=== PATIENT | male | born 1960 | race Caucasian/White ===

== ENCOUNTER → 2018-01-15 | Outpatient (CLI) | payer BC ==
--- NOTE | 2018-01-15 09:29 | US ---
EXAMINATION TYPE: US carotid duplex BILAT DATE OF EXAM: 01/15/2018 COMPARISON: NONE CLINICAL HISTORY: E11.9. EXAM MEASUREMENTS: RIGHT: Peak Systolic Velocity (PSV) cm/sec ----- Right CCA: 79.6 ----- Right ICA: 93.8 ----- Right ECA: 79.8 ICA/CCA ratio: 1.2 RIGHT: End Diastole cm/sec ----- Right CCA: 22.7 ----- Right ICA: 35.1 ----- Right ECA: 12.8 LEFT: Peak Systolic Velocity (PSV) cm/sec ----- Left CCA: 81.8 ----- Left ICA: 76.1 ----- Left ECA: 63.3 ICA/CCA ratio: 0.9 LEFT: End Diastole cm/sec ----- Left CCA: 24.1 ----- Left ICA: 14.9 ----- Left ECA: 12.7 VERTEBRALS (direction of flow): Right Vertebral: Antegrade Left Vertebral: Antegrade Rhythm: Normal Patient has short, very thick neck. Technically difficult study. No significant velocity elevations, mild atherosclerotic changes. IMPRESSION: 1. No significant flow-limiting stenosis. 2. Atheromatous plaquing present bilaterally. Some turbulent flow is noted on Doppler waveforms. Criteria for Assigning % of Stenosis / Diameter reduction (Estimation based on the indirect measurements of the internal carotid artery velocities (ICA PSV). 1. Normal (no stenosis)=ICA PSV < 125 cm/s: ratio < 2.0: ICA EDV<40 cm/s. 2. Less than 50% stenosis=ICA PSV < 125 cm/s: ratio < 2.0: ICA EDV<40 cm/s. 3. 50 to 69% stenosis=ICA PSV of 125 to 230 cm/s: ration 2.0 ? 4.0: ICA EDV 40-100 cm/s. 4. Greater than 70% stenosis to near occlusion= ICA PSV > 230 cm/s: ratio > 4.0: ICA EDV > 100 cm/s. 5. Near occlusion= ICA PSV velocities may be low or undetectable: variable ratio and ICA EDV. 6. Total occlusion=unable to detect flow.
--- NOTE | 2018-01-15 13:12 | ECHOF ---
Referral Reason:Type 2 diabetes mellitus without complications E11.9 MEASUREMENTS -------- HEIGHT: 167.6 cm WEIGHT: 113.4 kg BP: 145/84 RVIDd: 3.3 cm (< 3.3) IVSd: 1.4 cm (0.6 - 1.1) LVIDd: 4.3 cm (3.9 - 5.3) LVPWd: 1.5 cm (0.6 - 1.1) IVSs: 2.0 cm LVIDs: 2.6 cm LVPWs: 1.8 cm LA Diam: 3.2 cm (2.7 - 3.8) LAESV Index (A-L): 14.08 ml/m Ao Diam: 3.7 cm (2.0 - 3.7) AV Cusp: 2.3 cm (1.5 - 2.6) MV EXCURSION: 13.189 mm (> 18.000) MV EF SLOPE: 45 mm/s (70 - 150) EPSS: 0.5 cm MV E Nathan: 0.85 m/s MV DecT: 243 ms MV A Nathan: 0.96 m/s MV E/A Ratio: 0.89 FINDINGS -------- Sinus rhythm. This was a technically adequate study. The left ventricular size is normal. There is moderate concentric left ventricular hypertrophy. O verall left ventricular systolic function is normal with, an EF between 60 - 65 %. The right ventricle is mildly enlarged. The left atrial size is normal. The right atrium is normal in size. There is mild aortic valve sclerosis. The mitral valve is normal. The tricuspid valve appears structurally normal. There is no pulmonic regurgitation present. The aortic root size is normal. IVC Not well visulized. There is no pericardial effusion. CONCLUSIONS -------- 1. Sinus rhythm. 2. This was a technically adequate study. 3. The left ventricular size is normal. 4. There is moderate concentric left ventricular hypertrophy. 5. Overall left ventricular systolic function is normal with, an EF between 60 - 65 %. 6. The right ventricle is mildly enlarged. 7. The left atrial size is normal. 8. The right atrium is normal in size. 9. There is mild aortic valve sclerosis. 10. The mitral valve is normal. 11. The tricuspid valve appears structurally normal. 12. There is no pulmonic regurgitation present. 13. The aortic root size is normal. 14. IVC Not well visulized. 15. There is no pericardial effusion. BUILDING APPRAISER: Rupal Jewell RDCS
--- NOTE | 2018-01-15 14:18 | EST ---
EXERCISE STRESS DATE OF SERVICE: 01/15/2018 AGE: 58 SEX: Male HT: 66 WT: 250 PROTOCOL: Lanre STAGE: II DURATION OF EXERCISE: 6 minutes HEART RATE REST: 90 BLOOD PRESSURE REST: 145/80 MAXIMUM HEART RATE ACHIEVED: 143 MAXIMUM BLOOD PRESSURE: 258/68 85% MPHR: 136 100% MPHR: 160 METS: 6.3 INDICATIONS: Chest pain. CLINICAL INFORMATION: STRESS DATA: Pretesting physical examination showed a heart rate of 90, pressure is 145/80 mmHg. Baseline EKG showed sinus rhythm. The patient exercised on the treadmill according to Lanre protocol for a total of 6 minutes and achieved 6.3 METs. Max heart rate was 143, which is about 100% of maximum predicted heart rate. Maximum blood pressure was 258/68 mmHg. Clinically, the patient did not have any symptoms and the EKG did not show any significant changes. CONCLUSION: 1. Good exercise tolerance. 2. Normal EKG in response to exercise. MMODL / IJN: [id number] /
== END | disposition home or self-care (01) ==
LOC: RADUSMAIN 08:21
PROVIDERS: ATTEND Family Medicine
DX: I65.23 Occlusion and stenosis of bilateral carotid arteries (principal); I10 Essential (primary) hypertension; I51.7 Cardiomegaly; E11.9 Type 2 diabetes mellitus without complications
CPT/HCPCS: 93017; 93306; 93880

== ENCOUNTER 2018-02-05 07:05 | Day surgery (SDC) | payer BC ==
[2018-02-03 11:26] VITALS: BMI 39.5
[~2018-02-05 07:05] MED LIST: LACTATED RINGERS 1,000 ML IV SCH
[2018-02-05 07:28] VITALS: RESP 16; TEMP 98.1
[2018-02-05 07:34] LABS: Glucose,Whole Blood 206 mg/dL (75-99)
[2018-02-05] MEDS ORDERED: LIDOCAINE 1% 20 ML VIAL (10MG/ML) FOR IV START INTRADERMA ONE (07:37)
[2018-02-05] MEDS ORDERED: PROPOFOL 10 MG/ML 20 ML VIAL IV ONE (08:09)
--- NOTE | 2018-02-05 08:31 | P.PCN ---
Date of Procedure: 02/05/18 Procedure(s) Performed: BRIEF HISTORY: Patient is a 58-year-old pleasant male, scheduled for an elective colonoscopy as a part of screening for colorectal neoplasia. PROCEDURE PERFORMED: Colonoscopy. PREOPERATIVE DIAGNOSIS: Screening for Colon cancer. IV sedation per Anesthesia. PROCEDURE: After informed consent was obtained, the patient, was brought into the endoscopy unit. IV sedation was administered by Anesthesia under continuous monitoring. Digital rectal examination was normal. Initially the Olympus CF- 160 flexible video colonoscope was then inserted in the rectum, gradually advanced into the cecum without any difficulty. Careful examination was performed as the scope was gradually being withdrawn. Ileocecal valve and the appendiceal orifice were visualized and appeared normal. Prep was excellent. Mucosa of the cecum, ascending colon, transverse colon, descending colon, sigmoid colon, and rectum appeared normal. Scattered sigmoid diverticula seen. Retroflexion was performed in the rectum and no lesions were seen. The patient tolerated the procedure well. IMPRESSION: Normal-appearing colon from rectum to cecum with no evidence of colorectal neoplasia. Scattered sigmoid diverticula. RECOMMENDATIONS: Findings of this examination were discussed with the patient as well as his family. He was advised to have a repeat screening colonoscopy in 10 years.
[2018-02-05 08:39] LABS: Glucose,Whole Blood 200 mg/dL (75-99)
[2018-02-05 08:47] VITALS: BP 137/84; PULSE 83
== END 2018-02-05 08:59 | disposition home or self-care (01) ==
LOC: ORWHC2ENDO 07:05
PROVIDERS: ATTEND Internal Medicine Gastroenterology
DX: Z12.11 Encounter for screening for malignant neoplasm of colon (principal); K57.30 Diverticulosis of large intestine without perforation or abscess without bleeding; G47.33 Obstructive sleep apnea (adult) (pediatric); Z99.89 Dependence on other enabling machines and devices; I10 Essential (primary) hypertension; E11.9 Type 2 diabetes mellitus without complications; Z79.4 Long term (current) use of insulin; Z79.899 Other long term (current) drug therapy
CPT/HCPCS: 45378; J2704

== ENCOUNTER → 2023-09-18 | Outpatient (CLI) | payer BC ==
--- NOTE | 2023-09-18 15:31 | CT ---
EXAMINATION TYPE: CT sinus wo con DATE OF EXAM: 09/18/2023 COMPARISON: None HISTORY: sinus congestion x [address] DLP: 440.7 mGycm. Automated Exposure Control for Dose Reduction was Utilized. TECHNIQUE: CT scan of the sinuses is performed without contrast, axial images are obtained, coronal r eformatted images are also reviewed. FINDINGS: There is near-complete opacification of the maxillary, frontal, sphenoid and ethmoid sinuses. There i s inflammatory change involving the nasal turbinates on the right. There is complete obstruction of t he ostiomeatal complex disease bilaterally. There is marked thinning of the osseous wiley of the ethm oid sinuses and nasal turbinates consistent with chronic inflammatory change. Intraorbital contents appear normal. The mastoid air cells and middle ear cavities are well aerated. IMPRESSION: Marked chronic pansinusitis as described above.
== END | disposition home or self-care (01) ==
LOC: RADCTMAIN 12:50
PROVIDERS: ATTEND Otolaryngology
DX: J32.4 Chronic pansinusitis (principal)
CPT/HCPCS: 70486

== ENCOUNTER 2024-06-17 08:04 | Day surgery (SDC) | payer BC ==
[~2024-06-17 08:04] MED LIST changes: -LACTATED RINGERS 1,000 ML IV SCH; +LIDOCAINE 1% (10MG/ML) FOR IV START INTRADERMA PRN
[2024-06-17 08:35] VITALS: TEMP 97.8
[2024-06-17 08:41] LABS: Glucose,Whole Blood 187 mg/dL (70-110)
[2024-06-17] MEDS: LACTATED RINGERS 1,000 ML IV SCH (08:42)
[2024-06-17] MEDS: IV FLUID CONTINUATION 1,000 ML IV ONE (08:43)
[2024-06-17] MEDS ORDERED: LIDOCAINE 1% INJ 10MG/ML (20 ML MDV) ONE (09:48)
[2024-06-17] MEDS ORDERED: PROPOFOL 10 MG/ML 20 ML VIAL IV ONE (09:48)
--- NOTE | 2024-06-17 10:05 | P.PCN ---
Date of Procedure: 06/17/24 Procedure(s) Performed: BRIEF HISTORY: Patient is a 64-year-old, pleasant, white man scheduled for an upper endoscopy as a part of evaluation of GERD/chronic cough for the last 2 years duration. He was on rabeprazole 20 mg daily for 10 years but recently it was increased to 20 mg twice daily and since then his symptoms are gradually improving. Cough has significantly improved. PROCEDURE PERFORMED: Esophagogastroduodenoscopy with biopsy. PREOPERATIVE DIAGNOSIS: Longstanding history of GERD/chronic cough. IV sedation per anesthesia. PROCEDURE: After informed consent was obtained, the patient was brought into the endoscopy unit. IV sedation was administered by Anesthesia under continuous monitoring. Initially the Olympus GIF-140 video endoscope was inserted into the mouth. Esophagus intubated without any difficulty. It was gradually advanced into the stomach and duodenum and carefully examined. The bulb and the second part of the duodenum appeared normal. The scope at this time was withdrawn to the stomach, adequately insufflated with air, and upon careful examination, mucosa of the antrum, had linear areas of erythema consistent with gastritis and biopsies were done from this area. Mucosa of the body, cardia and the fundus appeared normal. The scope was then withdrawn into the esophagus. The GE junction was located at 45 cm from the incisors. The esophagus appeared normal. There were no erosions or ulcerations seen, biopsies were done from the distal esophagus and the patient tolerated the procedure well. IMPRESSION: 1. Normal-appearing esophagus with no evidence of esophagitis or Fletcher's esophagus or hiatal hernia. 2. Mild antral gastritis. RECOMMENDATIONS: The findings of this examination were discussed with the patient as well as his family. He was advised to continue with rabeprazole 20 mg twice daily and follow antireflux measures. Use Pepcid at bedtime as needed..
[2024-06-17 10:34] LABS: Glucose,Whole Blood 141 mg/dL (70-110)
[2024-06-17 10:35] VITALS: BP 127/65; PULSE 71; RESP 17
== END 2024-06-17 10:52 | disposition home or self-care (01) ==
LOC: ORWHC2ENDO 08:04
PROVIDERS: ATTEND Internal Medicine Gastroenterology
DX: K29.50 Unspecified chronic gastritis without bleeding (principal); K21.9 Gastro-esophageal reflux disease without esophagitis; I10 Essential (primary) hypertension; E78.5 Hyperlipidemia, unspecified; J45.909 Unspecified asthma, uncomplicated; G47.33 Obstructive sleep apnea (adult) (pediatric); E11.9 Type 2 diabetes mellitus without complications; Z79.899 Other long term (current) drug therapy
CPT/HCPCS: 88305; 43239; J2003; J2704

== ENCOUNTER → 2024-08-03 | Outpatient (CLI) | payer BC ==
[2024-08-03 18:19] LABS: Basophils # (A) 0.09 X 10*3/uL (0.00-0.10); Basophils % (A) 0.7 %; Eosinophils % (A) 12.9 %; HGB 12.8 g/dL (13.0-17.0); Lymphocytes % (A) 21.8 %; MCH 31.5 pg (27.0-32.0); MCHC 33.7 g/dL (32.0-37.0); MCV 93.6 FL (80.0-97.0); Mean Platelet Volume 10.2 FL (9.5-12.2); Monocytes # (A) 0.79 X 10*3/uL (0.20-1.00); Monocytes % (A) 6.4 %; NRBC Per 100 WBC 0 X 10*3/uL (0.00-0.01); Neutrophils # (A) 7.15 X 10*3/uL (1.80-7.70); Neutrophils % (A) 57.8 %; Platelet Count 289 X 10*3/uL (140-440); RBC 4.06 X 10*6/uL (4.40-5.60); WBC 12.38 X 10*3/uL (4.50-10.00)
[2024-08-04 14:53] LABS: Alt. alternata IgE Class CLASS 0; Alternaria alternata IgE <0.10 kU/L (<0.10); Asperg. fumagatus IgE <0.10 kU/L (<0.10); Asperg. fumagatus IgE Class CLASS 0; Bermuda Grass IgE <0.10 kU/L (<0.10); Birch(Com.Silvr) IgE <0.10 kU/L (<0.10); Birch(Com.Silvr) IgE Class CLASS 0; Cat Epith & Dander IgE <0.10 kU/L (<0.10); Cat Epith & Dander IgE Class CLASS 0; Clad herbarum IgE <0.10 kU/L (<0.10); Clad herbarum IgE Class CLASS 0; Cockroach IgE <0.10 kU/L (<0.10); Cottonwood IgE <0.10 kU/L (<0.10); Dermato. Pteronyssinus Class CLASS 0; Dermato. Pteronyssinus IgE <0.10 kU/L (<0.10); Dermato. farinae IgE <0.10 kU/L (<0.10); Dermato. farinae IgE Class CLASS 0; Dog Dander IgE <0.10 kU/L (<0.10); Elm IgE <0.10 kU/L (<0.10); Maple (Box Elder) IgE <0.10 kU/L (<0.10); Maple (Box Elder) IgE Class CLASS 0; Mountain Cedar IgE <0.10 kU/L (<0.10); Mountain Cedar IgE Class CLASS 0; Mouse Urine IgE Class CLASS 0; Mouse Urine Proteins,IgE <0.10 kU/L (0.10); Nettle IgE <0.10 kU/L (<0.10); Nettle IgE Class CLASS 0; Oak IgE <0.10 kU/L (<0.10); Penicillium chrysogenum IgE <0.10 kU/L (<0.10); Penicillium chrysogenum IgE Cl CLASS 0; Rough Marshelder IgE <0.10 kU/L (<0.10); Rough Marshelder IgE Class CLASS 0; Timothy Grass IgE <0.10 kU/L (<0.10); Timothy Grass IgE Class CLASS 0; White Ash IgE Class CLASS 0
== END | disposition home or self-care (01) ==
LOC: LABWHC1 14:01
PROVIDERS: ATTEND Internal Medicine
DX: J45.909 Unspecified asthma, uncomplicated (principal)
CPT/HCPCS: 36415; 82785; 85025; 86003

== ENCOUNTER 2024-09-14 08:38 | Day surgery (SDC) | payer BC ==
[~2024-09-14 08:38] MED LIST changes: +HYDROmorphone 0.5 MG/0.5 ML SYRINGE IVP PRN; +droPERidol 5 MG/2 ML VIAL IVP ONE
[2024-09-14] MEDS: IV FLUID CONTINUATION 1,000 ML IV ONE (09:20)
[2024-09-14] MEDS: OXYMETAZOLINE 0.05% NASL SPRAY 1 SPRAY BOTTLE EA NOSTRIL PRN (09:27)
[2024-09-14 09:51] LABS: Glucose,Whole Blood 176 mg/dL (70-110)
[2024-09-14] MEDS: LACTATED RINGERS 1,000 ML IV SCH (09:53)
[2024-09-14] MEDS: DEXAMETHASONE SOD PHOSPHATE 4 MG/ML 1 ML VIAL IV ONE (09:58)
[2024-09-14] MEDS: ONDANSETRON 4 MG/2 ML VIAL IVP ONE (09:58)
[2024-09-14] MEDS: FAMOTIDINE 20 MG/2 ML VIAL IV PRN (09:59)
[2024-09-14 10:03] LABS: African American GFR (CKD) >90 (>60 ml/min/1.73 sqM); Anion Gap 11 mmol/L; Blood Urea Nitrogen 18 mg/dL (9-20); Calcium 9.9 mg/dL (8.4-10.2); Carbon Dioxide 28 mmol/L (22-30); Chloride 102 mmol/L (98-107); Glucose 174 mg/dL (74-99); Non-African American GFR(CKD) >90 (>60 ml/min/1.73 sqM); Sodium 141 mmol/L (137-145)
[2024-09-14] MEDS ORDERED: ROCURONIUM 10 MG/ML (5 ML VIAL) IV ONE (10:32)
[2024-09-14] MEDS ORDERED: GLYCOPYRROLATE 0.2 MG/ML 2 ML VIAL ONE (10:32)
[2024-09-14] MEDS ORDERED: LIDOCAINE 1% INJ 10MG/ML (20 ML MDV) ONE (10:32)
[2024-09-14] MEDS ORDERED: NEOSTIGMINE 1 MG/ML 10 ML VIAL ONE (10:32)
[2024-09-14] MEDS ORDERED: SUCCINYLCHOLINE CHLORIDE 200 MG/10 ML VIAL IV ONE (10:32)
[2024-09-14] MEDS ORDERED: PROPOFOL 10 MG/ML 20 ML VIAL IV ONE (10:32)
[2024-09-14] MEDS ORDERED: fentaNYL (PF) 50 MCG/ML 2 ML AMP ONE (10:32)
[2024-09-14] MEDS: LIDOCAINE 1%-EPI 1:100,000 20 ML VIAL SUBMUCOSAL ONE ×3 (10:47→10:51)
[2024-09-14] MEDS: BACITRACIN ZINC 500 UNIT/GM OINT 28.4 GM TUBE TOPICAL ONE ×2 (11:07→11:39)
--- NOTE | 2024-09-14 11:59 | P.OP ---
Date of Procedure: 09/14/24 Preoperative Diagnosis: deviated nasal septum Inferior turbinate hypertrophy Chronic sinusitis Nasal polyposis Postoperative Diagnosis: same Procedure(s) Performed: septoplasty Outfracture and submucous resection of the inferior turbinates Bilateral endoscopic sinus surgery including bilateral maxillary antrostomy with removal of tissue from maxillary sinuses bilateral anterior and posterior ethmoidectomy bow sphenoidotomy with exploration and removal of tissue and bilateral frontal sinusotomy with Exploration and removal of tissue, nasal endoscopy with evaluation of the nasopharynx Anesthesia: YANNAA Surgeon: William Rosen Estimated Blood Loss (ml): 20 Pathology: other (nasal septal bone and cartilage sinus contents) Condition: stable Disposition: PACU Indications for Procedure: is a 64 show white male with chronic nasal airway obstruction congestion and chronic sinusitis with sinonasal polyps. Computed tomography scan showed pansinus disease Operative Findings: nasal septum deviated to the left with inferior turbinate hypertrophy bilate rally.diffuse polyposis in the middle meatus bilaterally but right larger the left there were polyps in the maxillary sinuses bilaterally as well as ethmoid sinuses frontal and sphenoid sinuses. Nasopharynx exam showed no particular abnormalities and therefore no biopsies were performed Description of Procedure: The patient was brought into the operative suite and placed in a supine position. The patient underwent induction of general anesthesia with oral endotracheal intubation without difficulty. The patient was prepped and draped in the usual aseptic fashion with the orbits in the operating field for monitoring to the case and the computed tomography scan was on the computer screen for review throughout the case. 1% lidocaine with 1 :100,000 epinephrine was infused submucosally into both sides of the nasal septum as well as the lateral nasal wall and anterior tips of the middle turbinates. While this was taking vasoconstrictive effect the inferior turbinates were infractured with De Witt elevator and partial submucous resection of the inferior turbinates was performed with a portion of the submucosal soft tissue and the inferior turbinate bone removed with Coblation device. The inferior turbinates were then outfractured with the De Witt elevator. A left hemitransfixion incision was then made with the mucoperichondrial and mucoperiosteal flap on the left elevated. The bony cartilaginous junction was disarticulated and the mucoperiosteal flap on the right was elevated. Bony nasal septal deformities were removed with Von forceps and an inferior cartilaginous strip was removed leaving a full 1.5 cm caudal strut. Checking intranasally this corrected the nasoseptal deformities and the hemitransfixion incision was closed with a running 4-0 chromic suture. Full 0 endoscopic examination is performed bilaterally. Beginning on the left, the middle turbinate was medialized. The maxillary ostium was located with a ballpoint probe and an infundibulotomy was performed followed by uncinectomy. The maxillary antrostomy was enlarged at the expense of the anterior and posterior fontanelle taking care anteriorly not to injure the lacrimal bone. The maxillary sinus was evaluated with 30 and 70 endoscope .[Abnormal appearing tissue was removed from the maxillary sinus]. Anterior and posterior ethmoidectomy were then performed from anterior to posterior to the level of the skull base. The roof of the anterior ethmoid air cells were then cleaned from posterior to anterior using up-biting Blakesley forceps. Frontal sinusotomy was performed with 30 endoscope and giraffe forceps with removal of tissue and sphenoidotomy was performed with straight suction 0 endoscope and straight Blakesley forcep with polyps removed. Attention was then turned to the right where the procedures were followed as they had been on the left including infundibulotomy uncinectomy and maxillary antrostomy with removal of tissue from the maxillary sinus, anterior posterior ethmoidectomy sphenoidotomy with removal of tissue from the sphenoid sinus and frontal sinusotomy with removal of tissue from the frontal sinus [Nasopore nasal dressing was placed in the middle meatus bilaterally under direct visualization]. Bilateral Russo airway splints coated with bacitracin ointment were placed and sutured transseptally with a 4-0 nylon suture. The pa tient was suctioned in oral gastric fashion and was allowed to emerge from general anesthesia having tolerated procedure well and was extubated in the operating suite and transferred to the postoperative recovery area in satisfactory condition.
[2024-09-14 12:18] VITALS: TEMP 97
[2024-09-14 12:26] LABS: Glucose,Whole Blood 157 mg/dL (70-110)
[2024-09-14 13:10] VITALS: BP 150/79; PULSE 77; RESP 15
== END 2024-09-14 13:24 | disposition home or self-care (01) ==
LOC: OR 08:38
PROVIDERS: ATTEND Otolaryngology
DX: J34.2 Deviated nasal septum (principal); J34.3 Hypertrophy of nasal turbinates; J32.9 Chronic sinusitis, unspecified; J33.9 Nasal polyp, unspecified; I10 Essential (primary) hypertension; E78.5 Hyperlipidemia, unspecified; G47.33 Obstructive sleep apnea (adult) (pediatric); E11.9 Type 2 diabetes mellitus without complications; K21.9 Gastro-esophageal reflux disease without esophagitis; F10.99 Alcohol use, unspecified with unspecified alcohol-induced disorder; H91.90 Unspecified hearing loss, unspecified ear; Z99.89 Dependence on other enabling machines and devices; Z90.49 Acquired absence of other specified parts of digestive tract; Z79.84 Long term (current) use of oral hypoglycemic drugs; Z79.4 Long term (current) use of insulin; Z79.899 Other long term (current) drug therapy
CPT/HCPCS: 80048; 30520; 31276; 30140; 31267; 31259; J0330; J1100; J2710; J0690; J2405; J2003; J3010; J3490; J2704; J1596